=== PATIENT | female | born 1950 | race Caucasian/White ===

== ENCOUNTER → 2019-07-06 | Outpatient (CLI) | payer MEDICARE | LOC: GMAM 15:38 | PROVIDERS: ATTEND Family Medicine | DX: D64.9 Anemia, unspecified (principal); E03.9 Hypothyroidism, unspecified ==

== ENCOUNTER 2019-07-19 09:02 | Emergency (ER) | payer MEDICARE ==
[2019-07-19] MEDS ORDERED: traMADol 37.5MG/APAP 325MG 1 EA TAB PO ONE (09:34)
--- NOTE | 2019-07-19 09:38 | ED.PDOC ---
History of Present Illness - General Chief Complaint: Trauma Stated Complaint: s/p fall Time Seen by Provider: 07/19/19 09:32 Source: patient, RN notes reviewed, Vital Signs reviewed Additional Information: 68yo F history hypothyroidism and HTN presents for persistent right hip pain. Reports pain started after mechanical fall approximately 2 weeks ago after tripping on curb. Walks with cane, denies head injury. Denies pain at other location besides right hip. On aspirin, otherwise denies anticoagulation use. Has been ambulatory since time of incident, but reportedly presented to ED today because of persistent pain. Denies fever, cough, congestion, or other complaints at this time. - History of Present Illness Allergies/Adverse Reactions: Allergies NO KNOWN ALLERGY Allergy (Verified 07/19/19 09:41) Home Medications: Ambulatory Orders Acetamin W/Cod #3 Tab [Tylenol w/CODEINE #3] 1 ea PO Q8HR PRN #10 tab 07/19/19 Amlodipine Besylate 2.5 mg PO DAILY 07/19/19 Aspirin [Aspirin Adult Low Dose] 81 mg PO DAILY 07/19/19 Bupropion HCl [Wellbutrin Xl] 300 mg PO DAILY 07/19/19 Cyclobenzaprine HCl [Flexeril] 10 mg PO TID 07/19/19 Diclofenac Sodium [Diclofenac Sodium Dr] 75 mg PO DAILY 07/19/19 Escitalopram Oxalate 20 mg PO DAILY 07/19/19 Furosemide [Lasix] 40 mg PO DAILY 07/19/19 Levothyroxine Sodium [Euthyrox] 175 mcg PO DAILY 07/19/19 Lisinopril & Hydrochlorothiazi [Lisinopril/Hydrochlorothi 20-25 mg] 1 tab PO DAILY 07/19/19 Ondansetron Odt [Zofran ODT] 4 mg PO Q8H PRN #20 tab 07/19/19 Review of Systems - Review of Systems Constitutional: States: no symptoms reported. Denies: chills, fever Respiratory: States: no symptoms reported Cardiology: States: no symptoms reported Musculoskeletal: States: other - right hip pain Neurological: States: no symptoms reported All other Systems: Reviewed and Negative Past Medical History (General) - Patient Medical History Hx Stroke: No Hx Congestive Heart Failure: No Hx Hypertension: Yes Hx Thyroid Disease: Yes Hx Diabetes: No Surgical History: Hysterectomy - Vaccination History Hx Influenza Vaccination: No Hx Pneumococcal Vaccination: No - Social History Hx Tobacco Use: Yes Family Medical History - Family History Mother Family History: Unknown Living Status: Unknown Physical Exam - Physical Exam General Appearance: Alert, No apparent distress, Well Developed Neck: non-tender, full range of motion, supple Respiratory: lungs clear, normal breath sounds, no respiratory distress, no accessory muscle use Cardiovascular/Chest: normal peripheral pulses, regular rate, rhythm, other - 1+ pitting edema BLE Peripheral Pulses: dorsalis pedis,right: 2+, dorsalis pedis,left: 2+, posterior tibialis,right: 2+, posterior tibialis,left: 2+ Back Exam: normal inspection, no vertebral tenderness Extremity: normal range of motion, non-tender, normal capillary refill, other - RLE: FROM all joints, no pain with palpation over greater trochanter, iliac crease, or knee; no pain with internal/external rotation hip, 2+ DP/PT pulses, intact light touch sensation, ambulatory with cane Skin Exam: normal color, warm/dry Progress - Progress Progress: 07/19/19 12:26 Well-appearing, afebrile, neurovascularly intact. Does not appear septic joint, acute limb ischemia. Symmetrical appearing lower extremities without pain in posterior leg, erythema, or warmth; low suspicion for acute DVT at this time. Patient denied any SOB, chest pain, dizziness, syncope. Possible crystal arthropathy, OA, or RA. Ambulatory. Does not appear acutely dangerous musculoskeletal pathology at this time. Discussed need for follow-up renal function within this week, especially with her diuretic use. ED warnings given, and outpatient f/u with PCP and ortho. 07/19/19 12:30 - EKG/XRAY/CT XRAY: femur Xray Comments: Femur xray: "IMPRESSION: No evidence for fracture or disclocation.." Departure - Departure Clinical Impression: Hip pain, right, Elevated serum creatinine Time of Disposition: 12:16 Disposition: Discharge to Home or Self Care Condition: Good Departure Forms: ED Discharge - Pt. Copy, Patient Portal Self Enrollment Instructions: DI for Trauma, DI for Leg Pain Diet: resume usual diet Activity: ambulate only with walker Referrals: Jay Moody MD [Primary Care Provider] - 1-2 Weeks Jeff Mccoy MD [Active Staff] - 1-5 Days Prescriptions: Acetamin W/Cod #3 Tab [Tylenol w/CODEINE #3] 1 ea PO Q8HR PRN #10 tab PRN Reason: Pain -- Severe Ondansetron Odt [Zofran ODT] 4 mg PO Q8H PRN #20 tab PRN Reason: Nausea Home Medications: Ambulatory Orders Acetamin W/Cod #3 Tab [Tylenol w/CODEINE #3] 1 ea PO Q8HR PRN #10 tab 07/19/19 Amlodipine Besylate 2.5 mg PO DAILY 07/19/19 Aspirin [Aspirin Adult Low Dose] 81 mg PO DAILY 07/19/19 Bupropion HCl [Wellbutrin Xl] 300 mg PO DAILY 07/19/19 Cyclobenzaprine HCl [Flexeril] 10 mg PO TID 07/19/19 Diclofenac Sodium [Diclofenac Sodium Dr] 75 mg PO DAILY 07/19/19 Escitalopram Oxalate 20 mg PO DAILY 07/19/19 Furosemide [Lasix] 40 mg PO DAILY 07/19/19 Levothyroxine Sodium [Euthyrox] 175 mcg PO DAILY 07/19/19 Lisinopril & Hydrochlorothiazi [Lisinopril/Hydrochlorothi 20-25 mg] 1 tab PO DAILY 07/19/19 Ondansetron Odt [Zofran ODT] 4 mg PO Q8H PRN #20 tab 07/19/19
--- NOTE | 2019-07-19 10:28 | RAD ---
EXAM: XR Right Knee, 3 Views CLINICAL HISTORY: pain s/p fall TECHNIQUE: Three views of the right knee. COMPARISON: No relevant prior studies available. FINDINGS: Bones/joints: Satisfactory appearance of total knee arthroplasty components. No acute fracture. No dislocation. Soft tissues: Unremarkable. IMPRESSION: Chronic changes as above. No acute disease. Electronically signed by: Raquel Ryder MD 07/19/2019 10:26 AM CDT
--- NOTE | 2019-07-19 10:29 | RAD ---
EXAM: XR Right Tibia and Fibula, 2 Views CLINICAL HISTORY: pain s/p fall TECHNIQUE: Frontal and lateral views of the right tibia and fibula. COMPARISON: Correlation made to right knee examination from the same time. FINDINGS: Bones/joints: Visualized total knee arthroplasty components well seated. No acute fracture. No dislocation. Soft tissues: Unremarkable. IMPRESSION: No acute findings in the right tibia and fibula or surrounding soft tissues. Electronically signed by: Raquel Ryder MD 07/19/2019 10:27 AM CDT
--- NOTE | 2019-07-19 10:30 | RAD ---
EXAM: XR Pelvis, 1 or 2 Views CLINICAL HISTORY: pain s/p fall TECHNIQUE: Frontal view of the pelvis. COMPARISON: No relevant prior studies available. FINDINGS: Bones/joints: There is mild degenerative change in the visualized lumbar spine. No acute fracture. No dislocation. Soft tissues: Unremarkable. IMPRESSION: No acute findings in the pelvis. Electronically signed by: Raquel Ryder MD 07/19/2019 10:29 AM CDT
[2019-07-19 12:06] VITALS: BP 177/86
[2019-07-19 12:34] VITALS: TEMP 96.6; O2SAT 95
== END 2019-07-19 12:34 | disposition home or self-care (01) ==
LOC: ER 09:02
DX: M25.551 Pain in right hip (principal); R94.4 Abnormal results of kidney function studies; I10 Essential (primary) hypertension; E03.9 Hypothyroidism, unspecified; Z79.82 Long term (current) use of aspirin

== ENCOUNTER → 2019-07-22 | Outpatient (CLI) | payer MEDICARE | LOC: GMAM 11:52 | PROVIDERS: ATTEND Family Medicine | DX: E03.9 Hypothyroidism, unspecified (principal); I10 Essential (primary) hypertension ==

== ENCOUNTER → 2019-07-29 | Outpatient (CLI) | payer MEDICARE | LOC: GMAM 16:05 | PROVIDERS: ATTEND Family Medicine | DX: R94.6 Abnormal results of thyroid function studies (principal) ==

== ENCOUNTER → 2019-08-12 | Outpatient (CLI) | payer MEDICARE ==
--- NOTE | 2019-08-13 10:41 | MRI ---
EXAM DESCRIPTION: Lower Extremity Joint,Left CLINICAL HISTORY: 68 years Female, PAIN IN LEFT HIP COMPARISON: None. TECHNIQUE: Multiplanar multisequence magnetic resonance imaging of the left hip in addition to large [id number] pelvic imaging. FINDINGS: There is increased PD signal within the medial adductor attachments symmetrically. No high-grade adductor tendon tearing. No pubic bone fracture. No hip or femoral fracture is present. There is no osteonecrosis. No advanced osteoarthritis of the hip joint. The left hip alpha angle is elevated at 66 degrees. The center edge angle is elevated at 44 degrees. No fibrocystic changes identified along the femoral head neck junction. No high-grade chondral labral separation or paralabral cyst formation is demonstrated. There is attenuation of the anterior superior labrum indicating degenerative fraying. Moderate left-sided and mild right-sided trochanteric bursitis. Iliopsoas and rectus femoris are intact. The piriformis and quadratus femoris are intact. The conjoined hamstring tendons are intact. Uterus is surgically absent. Minimal insertional gluteus medius and minimus tendinosis bilaterally. .Increased PD and inversion recovery signal is present within the right gluteus laura IMPRESSION: No hip or pelvic fracture. Acute low-grade symmetric bilateral adductor strains. No high-grade tears. Partially imaged strain of the right gluteus laura. Left-sided foraminal acetabular impingement morphology. Left-sided into superior degenerative labral fraying. No advanced hip joint osteoarthritis bilaterally. Moderate left-sided trochanteric bursitis. Electronically signed by: Maxwell Greene MD 08/13/2019 10:40 AM CDT
== END ==
LOC: MRI 12:51
PROVIDERS: ATTEND Family Medicine
DX: S76.212A Strain of adductor muscle, fascia and tendon of left thigh, initial encounter (principal); S76.211A Strain of adductor muscle, fascia and tendon of right thigh, initial encounter; S76.312A Strain of muscle, fascia and tendon of the posterior muscle group at thigh level, left thigh, initial encounter; M24.152 Other articular cartilage disorders, left hip; M70.62 Trochanteric bursitis, left hip

== ENCOUNTER → 2019-08-13 | Outpatient (CLI) | payer MEDICARE ==
--- NOTE | 2019-08-14 12:25 | MRI ---
EXAM DESCRIPTION: Lumbar Spine w/o Contrast : Magnetic Resonance Imaging. CLINICAL HISTORY: DISC DEGENERATION COMPARISON: None. TECHNIQUE: Multiplanar, multiple standard sequences, non contrast MRI, lumbar spine. FINDINGS: L5-S1: The disc is well visualized on axial T2 series 501, image 3. Disc desiccation. Minimal midline bulge. Hypertrophic degeneration of the posterior ligaments and facet joints (canal elements). AP canal diameter 10 mm. Left side disc osteophyte complex encroaching on the foramen which is minimally stenotic. Moderate right foraminal narrowing. L4-L5: Disc desiccation and disc space loss. Anterior bulging. Grade 1 anterolisthesis 4 mm. Moderate hypertrophic changes in the canal elements more on the right. Moderate hypertrophic degeneration of the canal elements. AP canal diameter 6 mm. Moderate to severe left foraminal narrowing and right foraminal stenosis. L3-L4: Disc desiccation and mild to moderate disc space loss with endplate Schmorl's nodes and moderate endplate reactive changes in the midline and more advanced to the left of midline encroachment on the left foramen which is stenotic and compromise of the left L3 nerve. Mild narrowing of the right foramen. Posterior broad-based 5 to 6 mm bulge of disc and spurs slightly more to the left of midline. Moderate degenerative hypertrophy of the canal elements. AP canal diameter 6.4 mm. L2-L3: Disc desiccation and moderate disc space loss. Moderate endplate reactive changes progressing to severe from the midline to the right associated with disc space loss. Disc osteophyte complex encroachment on the right foramen and compromise of the right L2 nerve. Mild to moderate degenerative hypertrophy of the canal elements. AP canal diameter 8.5 mm. Mild to moderate narrowing of the left foramen. L1-L2: Minimal disc space loss and disc desiccation in the midline into the left of midline. Moderate to severe endplate reactive changes regressing from the midline to the right of midline. Disc and osteophyte complex encroachment on the right foramen stenosis and compromise right L1 nerve. Disc osteophyte bulge into the canal. Minimal hypertrophic degenerative changes of the canal elements. AP canal diameter 10 mm. T12-L1: Minimal disc desiccation with disc space preserved. Anterior bulging and minimal borderline spurs. Mild posterior bulge. Minimal degenerative hypertrophy of the canal elements. Mild canal narrowing. Left foramen patent and mild narrowing of the right foramen. T12- L3 levoscoliosis. Paravertebral soft tissues paravertebral muscle atrophy.. Distal cord normal signal and caliber. Otherwise normal marrow signal in the remaining vertebral bodies and the posterior elements. Vertebral bodies are not compressed at any level. IMPRESSION: 1. Multiple levels of spondylosis, disc desiccation, canal and foraminal narrowing, hypertrophic degenerative changes in the facet joints and posterior flavum ligaments, and degenerative scoliosis. 2. Minimal stenosis right L5-S1 foramen with possible compromise left L5 nerve. Borderline multifactorial mild central canal stenosis. 3. Multifactorial L4-L5 severe central canal stenosis with anterolisthesis. Right foraminal stenosis and possible compromise right L4 nerve. 4. Stenosis of the left L3-4 foramen and possible compromise left L3 nerve. Multifactorial severe central canal stenosis with posterior broad-based disc osteophyte bulge. 5. Moderate to severe arthritis size spondylosis Disc osteophyte complex on the right at L2-L3 encroaching on the foramen with compromise of the right L2 nerve. Multifactorial mild central canal stenosis. 6. Moderate to severe right-sided L1-L2 spondylosis with disc osteophyte complex encroachment on the right foramen and compromise of the right L1 nerve. Borderline mild central canal stenosis multifactorial. Electronically signed by: Parker Macias MD 08/14/2019 12:24 PM CDT
== END ==
LOC: MRI 12:35
PROVIDERS: ATTEND Family Medicine
DX: M51.36 Other intervertebral disc degeneration, lumbar region (principal); M47.896 Other spondylosis, lumbar region; M46.96 Unspecified inflammatory spondylopathy, lumbar region; M43.16 Spondylolisthesis, lumbar region; M48.061 Spinal stenosis, lumbar region without neurogenic claudication; M48.07 Spinal stenosis, lumbosacral region; M41.9 Scoliosis, unspecified; M24.28 Disorder of ligament, vertebrae; M25.78 Osteophyte, vertebrae

== ENCOUNTER → 2020-01-27 | Outpatient (CLI) | payer MEDICARE | LOC: GMAM 17:52 | PROVIDERS: ATTEND Family Medicine | DX: E03.9 Hypothyroidism, unspecified (principal); I10 Essential (primary) hypertension; E78.2 Mixed hyperlipidemia ==